=== PATIENT | female | born 1975 | race Asian ===

== ENCOUNTER 2021-07-06 10:01 | Emergency (ER) | payer OTHER ==
[~2021-07-06] VITALS: Ht 157.5 cm; Wt 71.4 kg
[2021-07-06] MEDS ORDERED: METF-1211 PO (10:08)
[2021-07-06] MEDS ORDERED: KETOROLAC TROMETHAMINE 30 MG/ML VIAL IM ONE (10:45)
[2021-07-06 13:12] VITALS: BP 130/88
== END 2021-07-06 13:40 | disposition home or self-care (01) ==
LOC: EMS 10:04
DX: S39.012A Strain of muscle, fascia and tendon of lower back, initial encounter (principal); E11.9 Type 2 diabetes mellitus without complications; Z79.84 Long term (current) use of oral hypoglycemic drugs; X50.9XXA Other and unspecified overexertion or strenuous movements or postures, initial encounter; Y93.89 Activity, other specified; Y92.89 Other specified places as the place of occurrence of the external cause; Y99.8 Other external cause status
CPT/HCPCS: 72100; 96372; 99283; J1885